=== PATIENT | female | born 2005 | race Two or more races ===

== ENCOUNTER 2025-05-18 15:17 | Emergency (ER) | payer BC, OTHER ==
[~2025-05-18] VITALS: Ht 160 cm; Wt 63.0 kg
--- NOTE | 2025-05-18 15:40 | ECG ---
[facility] Test Date: 2025-05-18 Test Time: 15:18:55 Pat Name: RASHAAD CARDENAS Department: [facility] ED Patient ID: [id number] Room: Gender: F Dental Technician: WILMA : 2005 Requested By: CHRISTINE BARBER Order Number: [id number] Reading MD: Measurements Intervals [place] Rate: 109 P: 40 LA: 143 QRS: 61 QRSD: 75 T: -2 QT: 302 QTc: 407 Interpretive Statements Sinus tachycardia Borderline T abnormalities, inferior leads Please click the below link to view image of tracing.
--- NOTE | 2025-05-18 15:47 | ED.PDOC ---
History of Present Illness HPI Comments 19-year-old female brought by paramedics because she was having chest discomfort while moving boxes into his steroids area. Patient states that she does get these symptoms when she works in the heat. Denies any past medical surgical history. Chief Complaint: Chest Pain Time Seen by MD: 15:44 Reviewed Notes: Nurses Notes, Medications, Allergies Allergies: Coded Allergies: NO KNOWN ALLERGIES (Unverified , 05/18/25) Information Source: Patient Mode of Arrival: Ambulatory Severity: Mild Timing: Hours Duration: Since onset Past Medical History PAST MEDICAL HISTORY: Denies Surgical History: Denies all surgeries COLOR MATCHER History: No Pertinent COLOR MATCHER History Social History Smoker: Non-Smoker Alcohol: Denies ETOH Use Drugs: Denies Drug Use Constitutional: denies: chills, diaphoresis, fatigue, fever, malaise, sweats, weakness, others EENTM: denies: blurred vision, double vision, ear bleeding, ear discharge, ear drainage, ear pain, ear ringing, eye pain, eye redness, hearing loss, mouth pain, mouth swelling, nasal discharge, nose bleeding, nose congestion, nose pain, photophobia, tearing, throat pain, throat swelling, voice changes, others Respiratory: denies: cough, hemoptysis, orthopnea, SOB at rest, shortness of breath, SOB with excertion, stridor, wheezing, others Cardiovascular: reports: chest pain; denies: dizzy spells, diaphoresis, Dyspnea on exertion, edema, irregular heart beat, left arm pain, lightheadedness, palpitations, PND, syncope, others Gastrointestinal: denies: abdomen distended, abdominal pain, blood streaked bowels, constipated, diarrhea, dysphagia, difficulty swallowing, hematemesis, melena, nausea, poor appetite, poor fluid intake, rectal bleeding, rectal pain, vomiting, others Genitourinary: denies: abnormal vagina bleeding, burning, dyspareunia, dysuria, flank pain, frequency, hematuria, incontinence, pain, , vagina discharge, urgency, others Neurological: denies: dizziness, fainting, headache, left sided numbness, left sided weakness, numbness, paresthesia, pre-existing deficit, right sided numbness, right sided weakness, seizure, speech problems, tingling, tremors, weakness, others Musculoskeletal: denies: back pain, gout, joint pain, joint swelling, muscle pain, muscle stiffness, neck pain, others Integumetry: denies: bruises, change in color, change in hair/nails, dryness, laceration, lesions, lumps, rash, wounds, others Allergic/Immunocompromised: denies: Difficulty Healing, Frequent Infections, Hives, Itching, others Hematologic/Lymphatic: denies: anemia, blood clots, easy bleeding, easy bruising, swollen glands, others Endocrine: denies: excessive hunger, excessive sweating, excessive thirst, excessive urination, flushing, intolerance to cold, intolerance to heat, u nexplained weight gain, unexplained weight loss, others Psychiatric: denies: anxiety, bipolar disorder, depression, hopeless, panic disorder, schizophrenia, sleepless, suicidal, others Physical Exam General Appearance: Moderate Distress HEENT: Normal ENT Inspection, Pharynx Normal, TMs Normal Neck: Full Range of Motion, Non-Tender, Normal, Normal Inspection Respiratory: Chest Non-Tender, Lungs Clear, No Accessory Muscle Use, No Respiratory Distress, Normal Breath Sounds Cardiovascular: No Edema, No JVD, No Murmur, No Gallop, Normal Peripheral Pulses, Regular Rate/Rhythm Breast Exam: Deferred Gastrointestinal: No Organomegaly, Non Tender, No Pulsatile Mass, Normal Bowel Sounds, Soft Genitalia: Deferred Pelvic: Deferred Rectal: Deferred Extremities: No calf tenderness, Normal capillary refill, Normal inspection, Normal range of motion, Non-tender, No pedal edema Musculoskeletal : Apperance: Normal Neurologic: Alert, vehicle insurance agent II-XII nml as Tested, No Motor Deficits, Normal Affect, Normal Mood, No Sensory Deficits Cerebellar Function: Normal Reflexes: Normal Skin: Dry, Normal Color, Warm Peripheral Pulses: 3+ Radial (R), 3+ Radial (L) Lymphatic: No Adenopathy Was a procedure done? Was a procedure done?: No EKG EKG : Pulse Rate (adult): 109 Cardiac Rhythm: NSR Differential Dx Considerations may include: Anxiety Electrolyte imbalance X-Ray, Labs, Meds, VS Vital Signs Date Time Temp Pulse Resp B/P (MAP) Pulse Ox O2 Delivery O2 Flow Rate FiO2 05/18/25 16:23 97 05/18/25 15:47 109 05/18/25 15:25 98.9 116 18 124/75 100 98.9 05/18/25 15:18 109 Lab Test 05/18/25 15:50 Range/Units D-Dimer, Quantitative 0.40 0.0-0.49 mg/L FEU Troponin I High Sensitivity < 3 L </=34 ng/L Patient alert. Complaining of chest discomfort. Vitals stable. Answering all questions. EKG reviewed does not show any acute changes. Saturation pristine on room air. No leg swelling. No increase in respiratory rate. She is anxious. Was given Ativan. Explained to the patient. Was told to follow up with her primary care physician. Was told to come back if there is any problem. Time of 1ST Reevaluation: 15:46 Reevaluation 1ST: Improved Patient Education/Counseling: Diagnosis, Treatment, Prognosis, Need For Follow Up Family Education/Counseling: No Family Present SEPSIS Sepsis Screen Date sepsis recognized/suspect: May 18, 2025 Time Sepsis recognized/suspect: 1519 Recent Procedure: No On Antibiotic Therapy: No Respiratory Rate >20: No Heart Rate >90: Yes Temp<36 C (96.8 F) or >38.3 C: No SBP <90 or MAP <65 mmHG: No New Acute Mental Status Change: No Is the patient on CPAP, BIPAP,: No Physician Orders Electrocardigram (05/18/25 18:38) Troponin-I Hs (05/18/25 16:44) Troponin-I Hs (05/18/25 18:44) Vital Signs Date Time Temp Pulse Resp B/P (MAP) Pulse Ox O2 Delivery O2 Flow Rate FiO2 05/18/25 16:23 97 05/18/25 15:47 109 05/18/25 15:25 98.9 116 18 124/75 100 98.9 05/18/25 15:18 109 Departure 1 Departure Time of Disposition: 15:47 Impression: Primary Impression: Musculoskeletal chest pain Additional Impression: Anxiety Disposition: 01 HOME / SELF CARE / HOMELESS Condition: Good Discharged With: Self Critical Care Note Critical Care Time?: No Stability Stability form required: No Heart Score Heart Score: Heart Score Response (Comments) Value History Slightly Suspicious 0 EKG Normal 0 Age <45 0 Risk Factors No known risk factors 0 Troponin Normal limit 0 Total 0 CHRISTINE BARBER MD May 18, 2025 15:47
--- NOTE | 2025-05-18 16:24 | ECG ---
[facility] Test Date: 2025-05-18 Test Time: 16:23:07 Pat Name: RASHAAD CARDENAS Department: Room: Gender: F Mussel Opener: FRANCISCA : 2005 Requested By: CHRISTINE BARBER Order Number: [id number] Reading MD: Measurements Intervals [place] Rate: 97 P: 31 [place]: 139 QRS: 31 QRSD: 73 T: 1 QT: 310 QTc: 394 Interpretive Statements Sinus rhythm Borderline T wave abnormalities Please click the below link to view image of tracing.
[2025-05-18] MEDS: LORazepam 0.5 MG TAB PO ONE (17:31)
[2025-05-18 17:32] VITALS: BP 137/91; TEMP 98.4
[2025-05-18 17:33] VITALS: PULSE 107; RESP 18; O2SAT 100
== END 2025-05-18 18:41 | disposition left against medical advice (07) ==
LOC: EDBD 15:17 → ER 15:17
DX: R07.89 Other chest pain (principal); F41.9 Anxiety disorder, unspecified
CPT/HCPCS: 36415; 84484; 85379; 93005